=== PATIENT | male | born 1940 | race Caucasian/White ===

== ENCOUNTER → 2017-05-02 | Outpatient (CLI) | payer MEDICARE, OTHER ==
[~2017-05-02] MED LIST: ALLOPURINOL100 MG PO; CEPACOL SORE T1 EAC9 MM; CLINDAMYCIN HC300 MG PO; ENALAPRIL MALEA20 MG PO; METOPROLOL TAR100 MG PO; NAPROXEN250 MG PO; NORCO 5/3251 TABLET PO; PRILOSEC OTC20 MG PO; ROBITUSSIN LON118 ML PO; SIMVASTATIN40 MG PO
== END | disposition home or self-care (01) ==
LOC: CDC 15:46
DX: Z01.810 Encounter for preprocedural cardiovascular examination (principal); I45.10 Unspecified right bundle-branch block; R94.31 Abnormal electrocardiogram [ECG] [EKG]
CPT/HCPCS: 93000

== ENCOUNTER → 2017-11-12 | Outpatient (CLI) | payer MEDICARE, OTHER | END | disposition home or self-care (01) | LOC: CDC 14:00 | DX: Z01.810 Encounter for preprocedural cardiovascular examination (principal); I45.10 Unspecified right bundle-branch block; I44.0 Atrioventricular block, first degree; R94.31 Abnormal electrocardiogram [ECG] [EKG] | CPT/HCPCS: 93000 ==